=== PATIENT | female | born 1985 | race Caucasian/White ===

== ENCOUNTER 2023-06-15 21:36 | Outpatient (REF) | payer OTHER, SELFPAY ==
[2023-06-19 09:08] LABS: Age Gdln ACOG Testing Note (.); HPV Aptima Negative (Negative); IGP, Aptima HPV, rfx 16/18,45 Note (.)
== END 2023-06-15 21:37 | disposition home or self-care (01) ==
LOC: LAB 21:36
PROVIDERS: Visit Provider Obstetrics & Gynecology
DX: Z12.4 Encounter for screening for malignant neoplasm of cervix (principal)
CPT/HCPCS: 87624; G0145

== ENCOUNTER 2023-06-18 12:53 | Outpatient (OUT) | payer OTHER, SELFPAY ==
--- NOTE | 2023-06-18 13:04 | MM_ITS ---
Patient: JERMAINE KERR Exam Date: 06/18/2023 : 1985 Gender:F Ordering : DR Ron Boggs . Admission #: [id number] Family : MARIO GOODWIN Order #: [id number] CLICK HERE TO VIEW EXAM RADIOLOGY REPORT PROCEDURE: MM TOMOSYNTHESIS DIAGNOSTIC BI, 06/18/2023, 12:54 US BREAST BI LIMITED, 06/18/2023, 13:37 COMPARISON: None. INDICATIONS: Left Breast Mass N63.20, Mass Of Right Breast N63.10 Calculator Name NCI Breast Cancer Risk Assessment Tool 5 Year Breast Cancer Risk 0.70% Lifetime Breast Cancer Risk 13.70% Personal Breast Cancer No Personal Ovarian Cancer No Treatments None Family Cancers Grandmother-maternal with uterine cancer at age ~72; Aunt-maternal with cervical cancer at age ~37. LOCATION: [facility] BREAST COMPOSITION: Scattered areas fibroglandular density. FINDINGS: DIAGNOSTIC CATEGORY 1--NEGATIVE. RIGHT BREAST: Skin surface marker localizes the patient's palpable lump to the anterior upper inner quadrant. No abnormal mammographic findings. Ultrasound evaluation demonstrates normal appearing fibroglandular tissue. LEFT BREAST: Skin surface marker localizes the patient's palpable lump to the lower midline breast approximately 6 o'clock. No abnormal mammographic findings. Ultrasound evaluation demonstrates normal appearing fibroglandular tissue. RECOMMENDATIONS: ROUTINE MAMMOGRAM AND CLINICAL EVALUATION IN 12 MONTHS. PLEASE NOTE: A NORMAL MAMMOGRAM DOES NOT EXCLUDE THE POSSIBILITY OF BREAST CANCER. A CLINICALLY SUSPICIOUS PALPABLE LUMP SHOULD BE BIOPSIED. Dictated by: Patrick Jones M.D. on 06/18/2023 at 14:46 Approved by: Patrick Jones M.D. on 06/18/2023 at 14:50
--- NOTE | 2023-06-18 13:08 | US_ITS ---
Patient: JERMAINE KERR Exam Date: 06/18/2023 : 1985 Gender:F Ordering : DR Ron Boggs . Admission #: [id number] Family : MARIO GOODWIN Order #: [id number] CLICK HERE TO VIEW EXAM RADIOLOGY REPORT PROCEDURE: MM TOMOSYNTHESIS DIAGNOSTIC BI, 06/18/2023, 12:54 US BREAST BI LIMITED, 06/18/2023, 13:37 COMPARISON: None. INDICATIONS: Left Breast Mass N63.20, Mass Of Right Breast N63.10 Calculator Name NCI Breast Cancer Risk Assessment Tool 5 Year Breast Cancer Risk 0.70% Lifetime Breast Cancer Risk 13.70% Personal Breast Cancer No Personal Ovarian Cancer No Treatments None Family Cancers Grandmother-maternal with uterine cancer at age ~72; Aunt-maternal with cervical cancer at age ~37. LOCATION: [facility] BREAST COMPOSITION: Scattered areas fibroglandular density. FINDINGS: DIAGNOSTIC CATEGORY 1--NEGATIVE. RIGHT BREAST: Skin surface marker localizes the patient's palpable lump to the anterior upper inner quadrant. No abnormal mammographic findings. Ultrasound evaluation demonstrates normal appearing fibroglandular tissue. LEFT BREAST: Skin surface marker localizes the patient's palpable lump to the lower midline breast approximately 6 o'clock. No abnormal mammographic findings. Ultrasound evaluation demonstrates normal appearing fibroglandular tissue. RECOMMENDATIONS: ROUTINE MAMMOGRAM AND CLINICAL EVALUATION IN 12 MONTHS. PLEASE NOTE: A NORMAL MAMMOGRAM DOES NOT EXCLUDE THE POSSIBILITY OF BREAST CANCER. A CLINICALLY SUSPICIOUS PALPABLE LUMP SHOULD BE BIOPSIED. Dictated by: Patrick Jones M.D. on 06/18/2023 at 14:46 Approved by: Patrick Jones M.D. on 06/18/2023 at 14:50
== END 2023-06-18 12:54 | disposition home or self-care (01) ==
PROVIDERS: PCP Nurse Practitioner Family; Visit Provider Obstetrics & Gynecology
DX: N63.12 Unspecified lump in the right breast, upper inner quadrant (principal); N63.25 Unspecified lump in the left breast, overlapping quadrants; R10.2 Pelvic and perineal pain; R10.9 Unspecified abdominal pain
CPT/HCPCS: 76642; 77066; G0279

== ENCOUNTER 2023-09-14 11:16 | Emergency (ER) | payer OTHER, SELFPAY ==
[2023-09-14 11:22] VITALS: BP 125/74; PULSE 77; RESP 18; TEMP 36.7; O2SAT 97; BMI 32.7
--- NOTE | 2023-09-14 11:42 | ED_ITS ---
HPI - Abdominal Pain General Chief Complaint: Abdominal Pain Stated Complaint: ABDOMINAL PAIN RIGHT Time Seen by Provider: 09/14/23 11:42 Source: patient Mode of arrival: walk-in Limitations: no limitations History of Present Illness HPI narrative: this patient's here complaining of pain in her right mid abdomen and flank area. She felt fine over the last day or two. She went to work and started having the discomfort while she was at work. She has slight nausea but no vomiting. She has no diarrhea. Bowel movements have been normal. She has no urinary symptoms such as frequency urgency dysuria. She has no history of trauma or injury. Past surgical history is none. She says she is no possibility of being . She has family history of both kidney stones and biliary disease but she's not had personal history of either. Again there is no urinary symptomatology. Which she says when she lays down the pain pretty much goes away. Related Data Allergies Allergy/AdvReac Type Severity Reaction Status Date / Time No Known Drug Allergies Allergy Verified 09/14/23 11:21 PFSH PFS Social History Smoking status: Never smoker Exam Narrative Exam Narrative: awake alert oriented vital signs stable she's afebrile. She lies down and sits up with no discernible discomfort. Problem focused examination Shows abdomen have good bowel sounds there is no guarding rebound rigidity or peritoneal findings. She has actually no discomfort at McBurney's point. [place]'s sign is negative. She says when she is lying down it really doesn't hurt much. But she points to the right midabdomen and right flank area. Constitutional Vital Signs, click to edit/add: Last Vital Signs Temp 98.0 F 09/14/23 11:22 Pulse 77 09/14/23 11:22 Resp 18 09/14/23 11:22 BP 125/74 09/14/23 11:22 Pulse Ox 97 09/14/23 11:22 Course Vital Signs Vital signs: Vital Signs Temperature 98.0 F 09/14/23 11:22 Pulse Rate 77 09/14/23 11:22 Respiratory Rate 18 09/14/23 11:22 Blood Pressure 125/74 09/14/23 11:22 Pulse Oximetry 97 09/14/23 11:22 Temperature 98.0 F 09/14/23 11:22 Pulse Rate 77 09/14/23 11:22 Respiratory Rate 18 09/14/23 11:22 Blood Pressure 125/74 09/14/23 11:22 Pulse Oximetry 97 09/14/23 11:22 MDM - Abdominal Pain MDM Narrative Medical decision making narrative: patient awake alert good historian moves about comfortably was certainly no evidence of peritoneal irritation or discomfort in the abdomen. Examining her back there is no evidence of shingles or other skin lesions. Lucian sign is negative. Her lungs are clear with no wheezes rales or rhonchi. There is no tenderness over the spinal area. Examination abdomen there is no tenderness guarding or rebound. No discomfort with hellish palpation in right upper quadrant. No tenderness at McBurney's point. X-ray no tenderness any place on palpation abdomen when she is lying flat. Urinalysis does not show any evidence of blood or infection. A CT was done to at least rule out kidney stones vascular abnormalities or bowel problems. It shows no acute findings. This was suggested she's had biliary dysfunction. She does not have a pain in the pelvic area so I don't think it's gynecological. Lab Data Labs: Lab Results 09/14/23 09/14/23 Range/Units 12:10 12:26 WBC 4.4 (4.0-11.0) 10^3/uL RBC 4.81 (4.20-5.40) 10^6/uL Hgb 12.7 (12.0-16.0) g/dL Hct 39.8 (36.0-48.0) % MCV 82.7 (81.0-99.0) fL MCH 26.4 L (26.7-34.0) pg MCHC 31.9 (29.9-35.2) g/dL RDW 13.7 (11.0-15.0) % Plt Count 143 L (150-450) 10^3/uL MPV 13.8 H (9.5-13.5) fL Neut % (Auto) 63.1 (43.0-75.0) % Lymph % (Auto) 28.5 (20.5-60.0) % [place] % (Auto) 6.6 (1.7-12.0) % Eos % (Auto) 1.1 (0.9-7.0) % Baso % (Auto) 0.5 (0.2-2.0) % Neut # (Auto) 2.8 (1.4-6.5) 10^3/uL Lymph # (Auto) 1.3 (1.2-3.8) 10^3/uL [place] # (Auto) 0.3 (0.3-0.8) 10^3/uL Eos # (Auto) 0.1 (0.0-0.7) 10^3/uL Baso # (Auto) 0.0 (0.0-0.1) 10^3/uL Abs Immat Gran (auto) 0.01 (0.00-0.03) 10^3/uL Imm/Tot Granulo (auto) 0.2 (0.0-0.5) % Lactate 0.7 (0.4-2.0) mmol/L Lipase 18.0 (16.0-77.0) U/L Urine Color Yellow (YELLOW) Urine Clarity Clear (CLEAR) Urine pH 6.0 (5.0-9.0) Ur Specific [place] >=1.030 A (1.005-1.025) Urine Protein Negative (NEG/TRACE) mg/dL Urine Glucose (UA) Negative (NEGATIVE) mg/dL Urine Ketones 40 A (NEGATIVE) mg/dL Urine Occult Blood Negative (NEGATIVE) Urine Nitrite Negative (NEGATIVE) Urine Bilirubin Negative (NEGATIVE) Urine Urobilinogen 0.2 (0.2-1.0) EU/dL Ur Leukocyte Esterase Negative (NEGATIVE) Urine HCG, Qual Negative (NEGATIVE) Discharge Plan Discharge Chief Complaint: Abdominal Pain Clinical Impression: Abdominal pain Patient Disposition: Home, Self-Care Time of Disposition Decision: 13:54 Additional Instructions: avoid fatty greasy foods. Follow-up primary care doctor to consider diagnostic workup for gallbladder problems. Stand Alone Forms: Portal Instructions Referrals: MARIO GOODWIN [Primary Care Provider] - 1 week
--- NOTE | 2023-09-14 11:56 | CT_ITS ---
[address] [address] Patient Name: JERMAINE KERR MRN: [id number] date: 1985 Sex: F Assigned Patient Location: ER Current Patient Location: ER Accession/Order Number: [id number] Exam Date: 09/14/2023 12:44 Report Date: 09/14/2023 13:30 At the request of: CHALINO GOODEN Procedure: CT abdomen pelvis wo con EXAMINATION: CT abdomen pelvis wo con HISTORY: right flank/abdominal pain ; acute right lower quadrant pain COMPARISON: No relevant comparison available. TECHNIQUE: Axial, Coronal, and Sagittal images were obtained without and/or with IV contrast as indicated by examination type. Dose reduction techniques were achieved by using automated exposure control and/or adjustment of mA and/or kV according to patient size and/or use of iterative reconstruction technique. FINDINGS: LUNG BASES: No visible pulmonary or pleural disease. LIVER: No enlargement, atrophy, suspicious density, or significant focal lesion. BILIARY: No dilatation or calcification. PANCREAS: No lesion, fluid collection, or abnormal duct dilatation. SPLEEN: No enlargement or focal lesion. ADRENALS: No mass or enlargement. KIDNEYS: No mass, obstruction, or calcification. BOWEL/MESENTERY: No visible mass, obstruction, or bowel wall thickening. Normal appendix. AORTA/VASCULAR: No aneurysm or dissection. RETROPERITONEUM: No mass or adenopathy. LYMPH NODES: No adenopathy. URINARY BLADDER: No visible focal wall thickening, lesion, or calculus. PELVIC ORGANS: No visible mass. Pelvic organs appropriate for patient age. ABDOMINAL WALL: No mass or hernia. BONES: L5-S1 marked degenerative disc disease. No bony lesion or fracture. OTHER: Negative. CT/CT abdomen pelvis wo con IMPRESSION: 1. No acute or suspicious findings to account for patient's symptoms. 2. L5-S1 marked degenerative disc disease. Electronically authenticated by: DEBORA ANTONY Date: 09/14/2023 13:30
[2023-09-14 12:23] LABS: Basophils Percent Auto 0.5 % (0.2-2.0); Eosinophils Absolute Auto 0.1 10^3/uL (0.0-0.7); Eosinophils Percent Auto 1.1 % (0.9-7.0); Hematocrit 39.8 % (36.0-48.0); Hemoglobin 12.7 g/dL (12.0-16.0); Immature Granulocytes Abs Auto 0.01 10^3/uL (0.00-0.03); Immature Granulocytes Pct Auto 0.2 % (0.0-0.5); Lymphocytes Absolute Auto 1.3 10^3/uL (1.2-3.8); Lymphocytes Percent Auto 28.5 % (20.5-60.0); Mean Corpuscular HGB Conc 31.9 g/dL (29.9-35.2); Mean Corpuscular Hemoglobin 26.4 pg (26.7-34.0); Mean Corpuscular Volume 82.7 fL (81.0-99.0); Mean Platelet Volume 13.8 fL (9.5-13.5); Monocytes Absolute Auto 0.3 10^3/uL (0.3-0.8); Monocytes Percent Auto 6.6 % (1.7-12.0); Neutrophils Absolute Auto 2.8 10^3/uL (1.4-6.5); Neutrophils Percent Auto 63.1 % (43.0-75.0); Platelet Count 143 10^3/uL (150-450); Red Blood Count 4.81 10^6/uL (4.20-5.40); Red Cell Distribution Width 13.7 % (11.0-15.0); White Blood Count 4.4 10^3/uL (4.0-11.0)
[2023-09-14 12:34] LABS: Lactate/Lactic Acid 0.7 mmol/L (0.4-2.0)
[2023-09-14 12:36] LABS: Bilirubin Urine NEGATIVE (NEGATIVE); Blood Urine NEGATIVE (NEGATIVE); Clarity Urine CLEAR (CLEAR); Color Urine YELLOW (YELLOW); Glucose Urine UA NEGATIVE (NEGATIVE); Ketones Urine 40 mg/dL (NEGATIVE); Leukocyte Esterase Urine NEGATIVE (NEGATIVE); Nitrite Urine NEGATIVE (NEGATIVE); Protein Urine NEGATIVE (NEG/TRACE); Specific Gravity Urine >=1.030 (1.005-1.025); Urobilinogen Urine 0.2 EU/dL (0.2-1.0)
[2023-09-14 12:39] LABS: Urine Microscopic Indicated NO
[2023-09-14 12:40] LABS: HCG Qualitative Urine* NEGATIVE (NEGATIVE)
== END 2023-09-14 14:13 | disposition home or self-care (01) ==
PROVIDERS: Emergency Provider Emergency Medicine Emergency Medical Services; PCP Nurse Practitioner Family
DX: R10.9 Unspecified abdominal pain (principal)
CPT/HCPCS: 36415; 74176; 81003; 83605; 83690; 84703; 85025; 99284